=== PATIENT | male | born 1980 | race Two or more races ===

== ENCOUNTER 2022-05-20 14:33 | Emergency (ER) | payer OTHER ==
[2022-05-20 14:41] VITALS: BP 137/89; PULSE 85; RESP 18; TEMP 98.4; BMI 34.9
[2022-05-20] MEDS ORDERED: KETOROLAC TROMETHAMINE 30 MG/1 ML VIAL IM ONE (15:43)
[2022-05-20] MEDS ORDERED: KETOROLAC TROMETHAMINE 30 MG/1 ML VIAL ONE (17:24)
== END 2022-05-20 19:13 | disposition home or self-care (01) ==
LOC: JERFT 14:33
PROC: 3E023GC Introduction of Other Therapeutic Substance into Muscle, Percutaneous Approach (ICD-10-PCS; principal; 2022-05-20)
DX: M54.50 Low back pain, unspecified (principal); M25.561 Pain in right knee; V49.40XA Driver injured in collision with unspecified motor vehicles in traffic accident, initial encounter
CPT/HCPCS: 72131-TC; 73562-TC-RT-FY; 99284-25